=== PATIENT | female | born 1960 | race Caucasian/White ===

== ENCOUNTER 2017-04-20 19:54 | Emergency (ER) | payer MEDICAID ==
--- NOTE | 2017-04-20 20:34 | ED Physician Chart ---
Chief Complaint/HPI - Patient Information Date Seen:: 04/20/17 Time Seen:: 20:00 Chief Complaint:: nausea vomiting and diarrhea History of Present Illness:: 57-year-old female with acute, constant, severe, nausea, with associated intermittent vomiting, and diarrhea that started this morning. She also has associated burning, constant, moderate, nonradiating, epigastric pain. Denies chest pain, palpitations, fevers, chills, headache, acute vision changes, gross blood in stool, dysuria, gross hematuria, numbness or tingling. Allergies:: Allergies Allergy/AdvReac Type Severity Reaction Status Date / Time No Known Allergies Allergy Verified 04/20/17 20:14 Vitals:: Vital Signs - 8 hr 04/20/17 20:05 Temp 98.1 F HR 107 RR 20 BP 116/86 O2 Sat % 98 Historian:: Patient Review:: Nurse's Note Reviewed Review of Systems - Review of Systems Other: Complete system review otherwise unremarkable except as noted in history of present illness. Past Medical History - Past Medical History Past Medical History: Dyslipidemia, PUD/GERD, Other (anxiety and hyperlipidemia) Family History: None Social History: Non Smoker, No Alcohol, No Drug Use, Other Surgical History: Medication: Reviewed Family Medical History - Family Member Mother History Unknown: Yes Ethnicity: Physical Exam - Physical Examination Other:: INITIAL VITAL SIGNS: Reviewed by me GENERAL: Alert and interactive. Moderate distress due to pain HEAD: Head is normocephalic and atraumatic EYES: EOMI. PERRL. No scleral icterus. No conjunctival injection ENT: Moist mucous membranes. NECK: Supple. No masses. Full range of motion RESPIRATORY: No tachypnea. Clear breath sounds bilaterally. No wheezing, rales, or rhonchi CV: Regular rate and rhythm. No murmurs, rubs, or gallops ABDOMEN: Soft, non-distended, tenderness to palpation in the general epigastric region with guarding on deep palpation. No rebound. No masses. EXTREMITIES: No deformity. No cyanosis. No edema. SKIN: Warm and dry. No obvious rashes. NEUROLOGIC: Alert and oriented. Face is symmetric. Speech is normal. Moves all extremities equally. Motor and sensory distally intact. Labs/Radiology/EKG Results - Lab Results Results: Lab Results 04/20/17 04/20/17 Range/Units 20:44 20:44 WBC 9.5 (4.8-10.8) Th/cmm RBC 5.38 H (3.80-5.10) Mil/cmm Hgb 14.9 (11.7-15.5) gm/dL Hct 44.8 (35.0-45.0) % MCV 83.3 (81-100) fl MCH 27.6 (27.0-31.0) pg MCHC Differential 33.2 (28.0-36.0) pg RDW 13.7 (11.5-20.0) % Plt Count 293 (150-400) Th/cmm MPV 7.1 fl Sodium 134 L (136-145) mEq/L Potassium 3.8 (3.5-5.1) mEq/L Chloride 102 (98-107) mEq/L Carbon Dioxide 25.0 (21.0-31.0) mEq/L Anion Gap 10.8 (7.0-16.0) BUN 15 (7-25) mg/dL Creatinine 0.6 (0.6-1.2) mg/dL Est GFR ( Amer) > 60.0 (>90) ml/min Est GFR (Non-Af Amer) > 60.0 ml/min BUN/Creatinine Ratio 25.0 Glucose 134 H (70-105) mg/dL Calcium 9.3 (8.6-10.3) mg/dL Total Bilirubin 0.8 (0.3-1.0) mg/dL AST 15 (13-39) U/L ALT 16 (7-52) U/L Alkaline Phosphatase 116 H (34-104) U/L Total Protein 7.9 (6.0-8.3) gm/dL Albumin 4.6 (3.7-5.3) gm/dL Globulin 3.3 gm/dL Albumin/Globulin Ratio 1.4 (1.0-1.8) Lipase 10 L (11-82) U/L - Radiology Results Results: CT abdomen and pelvis without contrast. Report per radiology Cholelithiasis otherwise NAD ED Septic Shock - . Is Septic Shock (SBP<90, OR Lactate>4 mmol\L) present?: No - <6hrs of presentation: Vital Signs: Vital Signs - 8 hr 04/20/17 20:05 Temp 98.1 F HR 107 RR 20 BP 116/86 O2 Sat % 98 Reassessment (Disposition) - Reassessment Reassessment:: Patient presented with acute nausea, vomiting, diarrhea. She also had associated burning epigastric pain. Also has a history of GERD. Has possible viral gastroenteritis. Denies any gross hematuria or gross blood in stool. Gave IV antiemetics, IV hydration, IV analgesics. Symptoms did improve. CT imaging showed some cholelithiasis but was otherwise unremarkable for any acute process. No sign of obstructive process on labs. No leukocytosis. Provided prescription for Zofran and Pepcid. Recommend follow-up PCP 1-2 days. Return to ER precautions were given. Patient's history understands and agrees with the plan. - Diagnosis Diagnosis:: Acute nausea, vomiting and diarrhea Acute epigastric pain - Aftercare/Follow up Instructions Aftercare/Follow-Up Instructions:: Counseled pt regarding lab results/diagnosis & need follow up, Refer to Discharge Instructions Medication Prescribed:: Pepcid Zofran - Patient Disposition Discharge/Transfer:: Home Time:: 22:56 Condition at Disposition:: Improved ED Discharge Plan - Patient Disposition Admit/Discharge/Transfer: PT DISCHARGED HOME Condition at Disposition: Improved Prescriptions: Ondansetron [Zofran ODT] 4 mg PO Q8HR PRN 7 Days PRN Reason: Nausea / Vomiting Famotidine [Pepcid*] 40 mg PO DAILY 14 Days Instructions: Nausea and Vomiting, [id number], Sore Throat
[2017-04-20] MEDS ORDERED: Sodium Chloride 0.9% 1,000 ML IV ONE (20:40)
[2017-04-20] MEDS ORDERED: Donnatal Liq 5 ML UDC PO STA (20:41)
[2017-04-20] MEDS ORDERED: Maalox 30 mL Cup PO STA (20:41)
[2017-04-20] MEDS ORDERED: Donnatal Liq 5 ML UDC ONE (20:46)
[2017-04-20] MEDS ORDERED: Maalox 30 mL Cup ONE (20:46)
[2017-04-20 20:52] LABS: HEMATOCRIT 44.8 % (35.0-45.0); HEMOGLOBIN 14.9 gm/dL (11.7-15.5); MEAN CELL VOLUME 83.3 fl (81-100); MEAN CORPUSCULAR HEMOGLOBIN 27.6 pg (27.0-31.0); MEAN CORPUSCULAR HGB CONC 33.2 pg (28.0-36.0); MEAN PLATELET VOLUME 7.1 fl; PLATELET COUNT 293 Th/cmm (150-400); RED BLOOD COUNT 5.38 Mil/cmm (3.80-5.10); RED CELL DISTRIBUTION WIDTH 13.7 % (11.5-20.0); WHITE BLOOD COUNT 9.5 Th/cmm (4.8-10.8)
[2017-04-20 21:06] LABS: ALB/GLOB RATIO 1.4 (1.0-1.8); ALKALINE PHOSPHATASE 116 U/L (34-104); ANION GAP 10.8 (7.0-16.0); BILIRUBIN,TOTAL 0.8 mg/dL (0.3-1.0); BUN - UREA NITROGEN 15 mg/dL (7-25); CALCIUM SERUM 9.3 mg/dL (8.6-10.3); CHLORIDE 102 mEq/L (98-107); CREATININE - SERUM 0.6 mg/dL (0.6-1.2); GLUCOSE 134 mg/dL (70-105); LIPASE 10 U/L (11-82); POTASSIUM SERUM 3.8 mEq/L (3.5-5.1); SGOT 15 U/L (13-39); SGPT/ALT 16 U/L (7-52); SODIUM SERUM 134 mEq/L (136-145)
[2017-04-20 21:17] LABS: BAND NEUTROPHILE 2 % (0-10); NEUTROPHILS 87 % (40-80); TOTAL CELLS COUNTED 100
[2017-04-20 21:18] LABS: PLATELET ESTIMATE ADEQUATE (NORMAL); PLATELET MORPHOLOGY NORMAL (NORMAL)
--- NOTE | 2017-04-21 10:57 | Diagnostic Imaging Report ---
CT scan abdomen and pelvis without venous contrast HISTORY: Pain Total DLP equals 438 CTDI equals 9.1 Axial sections were obtained from the xiphoid process down to the pubic symphysis. The liver exhibits a normal size and contour. No focal lesions. The spleen appears normal. No focal amenities seen in the region pancreas. Findings consistent with multiple gallstones noted. No focal renal lesions. No hydronephrosis. The exam of the pelvis demonstrates preservation of normal fat planes. No abnormal soft tissue masses or abnormal fluid collections. IMPRESSION: 1. Findings consistent with cholelithiasis 2. No other acute abnormalities
== END 2017-04-20 22:58 | disposition home or self-care (01) ==
LOC: ER 19:54
DX: R11.2 Nausea with vomiting, unspecified (principal); R10.13 Epigastric pain; R19.7 Diarrhea, unspecified; E78.5 Hyperlipidemia, unspecified; Z98.890 Other specified postprocedural states
CPT/HCPCS: 99285; 74176; 96374; 96375; 36415; 85007; 85027; 83690; 80053; J1885; J2405; J7030